=== PATIENT | female | born 1975 | race Two or more races ===

== ENCOUNTER 2016-12-08 18:25 | Emergency (ER) | payer OTHER ==
[~2016-12-08] VITALS: Ht 157.5 cm; Wt 60.0 kg
[2016-12-08] MEDS ORDERED: OXYcodone/APAP 10/325MG TABLET PO ONE (18:30)
[2016-12-08] MEDS ORDERED: KETOROLAC 30 MG/1 ML IM ONE (18:30)
[2016-12-08] MEDS ORDERED: ONDANSETRON ODT 4 MG ONE (18:49)
[2016-12-08] MEDS ORDERED: KETOROLAC 30 MG/1 ML ONE (18:49)
[2016-12-08] MEDS ORDERED: OXYcodone/APAP 10/325MG TABLET ONE (18:50)
[2016-12-08] MEDS ORDERED: PLEASE ENTER ALLERGIES MC SCH ×2 (19:00)
[2016-12-08] MEDS ORDERED: ONDANSETRON ODT 4 MG PO ONE (19:00)
[2016-12-08 19:52] VITALS: BP 122/80
== END 2016-12-08 20:06 | disposition home or self-care (01) ==
LOC: ED 20:00
DX: S33.5XXA Sprain of ligaments of lumbar spine, initial encounter (principal); W50.0XXA Accidental hit or strike by another person, initial encounter; Y93.89 Activity, other specified; Y92.89 Other specified places as the place of occurrence of the external cause; Y99.8 Other external cause status
CPT/HCPCS: 72110; 96372; 99284; J1885; Q0162

== ENCOUNTER → 2017-06-02 | Outpatient (CLI) | payer OTHER | END | disposition home or self-care (01) | LOC: CFH 13:18 → EDSTATUS 14:00 | PROVIDERS: ATTEND Obstetrics & Gynecology Female Pelvic Medicine and Reconstructive Surgery | DX: N83.202 Unspecified ovarian cyst, left side (principal); R92.2 Inconclusive mammogram; N64.4 Mastodynia | CPT/HCPCS: 76642; 76830; 77066 ==